=== PATIENT | male | born 1995 | race African-American/Black ===

== ENCOUNTER 2018-04-21 19:00 | Inpatient (IN) | payer OTHER ==
[~2018-04-21] VITALS: Ht 188 cm; Wt 71.3 kg
[2018-04-21] MEDS ORDERED: SODIUM CHLORIDE 0.9% 1,000ML IVBOLUS ONE ×2 (19:30→20:00)
[2018-04-21 19:33] LABS: BASOPHILS # (AUTO) 0.04 x10^3/uL (0-0.1); BASOPHILS % (AUTO) 1 % (0-1); EOSINOPHILS % (AUTO) 0 % (1-7); LYMPHOCYTES # (AUTO) 1.43 x10^3/uL (1-3.4); LYMPHOCYTES % (AUTO) 30 % (22-44); MD NO; MEAN CORPUSCULAR HEMOGLOBIN 23.5 pg (27.5-34.5); MEAN CORPUSCULAR HGB CONC 31.8 g/dL (33.2-36.2); MEAN CORPUSCULAR VOLUME 73.9 fL (81-97); MEAN PLATELET VOLUME 9.2 fL (7.4-10.4); MONOCYTES # (AUTO) 0.07 x10^3/uL (0.2-0.8); MONOCYTES % (AUTO) 2 % (2-9); NEUTROPHILS # (AUTO) 3.26 x10^3/uL (1.8-6.8); NEUTROPHILS % (AUTO) 68 % (42-75); PLATELET COUNT 242 x10^3/uL (130-400); RED BLOOD COUNT 6.43 x10^6/uL (4.38-5.82); RED CELL DISTRIBUTION WIDTH 13.7 % (9.4-14.8)
[2018-04-21 19:45] LABS: ACETONE, SERUM Large (80mg/dL) mg/dL (Negative)
[2018-04-21 19:48] LABS: ALANINE AMINOTRANSFERASE 33 U/L (12-78); ALBUMIN 4.4 g/dL (3.4-5.0); ANION GAP 21 mmol/L (5-15); CALCIUM 10.2 mg/dL (8.5-10.1); CHLORIDE 96 mmol/L (98-107)
[2018-04-21 19:50] LABS: ALKALINE PHOSPHATASE 84 U/L (45-117); TOTAL PROTEIN 9.2 g/dL (6.4-8.2)
[2018-04-21] MEDS ORDERED: REGULAR INSULIN 62.5 UNITS in SODIUM CHLORIDE 0.9% 249.375 ML IV PRN ×2 (19:58→21:39)
[2018-04-21] MEDS ORDERED: INSULIN REGULAR 100 UNITS/ML, 3ML VIAL IVPush ONE (20:00)
[2018-04-21] MEDS ORDERED: INSULIN (21:18)
[2018-04-21] MEDS ORDERED: D5%-0.45% NACL 1,000 ML IV PRN (21:39)
[2018-04-21] MEDS ORDERED: OXYcodone IR 5MG TABLET PO PRN (22:00)
[2018-04-21] MEDS ORDERED: ONDANSETRON 2MG/ML, 2ML IVPush PRN (22:00)
[2018-04-21] MEDS ORDERED: PROMETHAZINE 25 MG/ML, 1ML IM PRN (22:00)
[2018-04-21] MEDS ORDERED: hydrALAzine 20 MG/ML, 1ML IVPush PRN (22:00)
[2018-04-21] MEDS ORDERED: BISACODYL 10 MG SUPP PR PRN (22:00)
[2018-04-21] MEDS ORDERED: ONDANSETRON ODT 4 MG PO PRN (22:00)
[2018-04-21] MEDS ORDERED: POLYETHYLENE GLYCOL 17 GM PACKET PO PRN (22:00)
[2018-04-21] MEDS ORDERED: ACETAMINOPHEN 325 MG TABLET PO PRN (22:00)
[2018-04-21] MEDS ORDERED: morphine SULFATE 10 MG/ML, 1ML IVPush PRN (22:00)
[2018-04-21] MEDS ORDERED: DOCUSATE 100 MG CAPSULE PO PRN (22:00)
[2018-04-21 22:14] LABS: HEMOGLOBIN A1C 15.8 % (4.2-6.3)
[2018-04-21 22:16] LABS: FREE T4 (FREE THYROXINE) 0.99 ng/dL (0.76-1.46); THYROID STIMULATING HORMONE 0.348 mIU/L (0.358-3.740)
[2018-04-21] MEDS: HEPARIN 5,000 UNITS/ML, 1ML SQ SCH (23:11)
[2018-04-21] MEDS: SODIUM CHLORIDE 0.9% 1,000 ML IV SCH (23:11)
[2018-04-22 00:18] LABS: ANION GAP 15 mmol/L (5-15); CALCIUM 8.8 mg/dL (8.5-10.1); CHLORIDE 109 mmol/L (98-107); CREATININE 1.22 mg/dL (0.7-1.3)
[2018-04-22] MEDS: SODIUM CHLORIDE 0.9% 1,000 ML IV SCH (02:46)
[2018-04-22 03:39] LABS: MICROSCOPIC NOT IND
[2018-04-22 03:43] LABS: CULTURE INDICATED? NO
[2018-04-22 04:15] VITALS: BP 97/63
[2018-04-22 04:52] LABS: ANION GAP 8 mmol/L (5-15); CALCIUM 8.3 mg/dL (8.5-10.1); CHLORIDE 110 mmol/L (98-107)
[2018-04-22 04:56] LABS: CHOL/HDL RATIO 3.9; CHOLESTEROL, TOTAL 172 mg/dL (140-239); CREATININE 1.22 mg/dL (0.7-1.3); HDL CHOL % 26 % (26-37); HDL CHOLESTEROL (DIRECT) 44 mg/dL (40-60); LDL CHOLESTEROL,CALCULATED 118 mg/dL (54-169); LDL/HDL RATIO 2.7 (0.5-3.0); TRIGLYCERIDES 50 mg/dL (50-200); VLDL CHOLESTEROL 10 mg/dL (0-25)
[2018-04-22 05:15] LABS: BASOPHILS # (AUTO) 0.03 x10^3/uL (0-0.1); BASOPHILS % (AUTO) 1 % (0-1); EOSINOPHILS # (AUTO) 0.04 x10^3/uL (0-0.4); EOSINOPHILS % (AUTO) 1 % (1-7); LYMPHOCYTES # (AUTO) 2.08 x10^3/uL (1-3.4); LYMPHOCYTES % (AUTO) 47 % (22-44); MD NO; MEAN CORPUSCULAR HEMOGLOBIN 23.8 pg (27.5-34.5); MEAN CORPUSCULAR HGB CONC 32.4 g/dL (33.2-36.2); MEAN CORPUSCULAR VOLUME 73.4 fL (81-97); MEAN PLATELET VOLUME 9.4 fL (7.4-10.4); MONOCYTES # (AUTO) 0.16 x10^3/uL (0.2-0.8); MONOCYTES % (AUTO) 4 % (2-9); NEUTROPHILS # (AUTO) 2.14 x10^3/uL (1.8-6.8); NEUTROPHILS % (AUTO) 48 % (42-75); PLATELET COUNT 178 x10^3/uL (130-400); RED BLOOD COUNT 5.78 x10^6/uL (4.38-5.82); RED CELL DISTRIBUTION WIDTH 13.4 % (9.4-14.8)
[2018-04-22] MEDS: HEPARIN 5,000 UNITS/ML, 1ML SQ SCH (05:19)
[2018-04-22 08:57] LABS: ANION GAP 8 mmol/L (5-15); CALCIUM 9.1 mg/dL (8.5-10.1); CHLORIDE 112 mmol/L (98-107); CREATININE 1.06 mg/dL (0.7-1.3)
[2018-04-22] MEDS ORDERED: INSULIN GLARGINE 100 UNITS/ML, PEN ONE (09:26)
[2018-04-22] MEDS: INSULIN GLARGINE 100 UNITS/ML, PEN SQ-INSULIN SCH ×2 (09:33→15:49)
[2018-04-22] MEDS: INSULIN LISPRO 100 UNITS/ML, PEN SQ-INSULIN SCH ×3 (10:17→21:10)
[2018-04-22] MEDS ORDERED: MAGNESIUM SULFATE PMX 2GM/50ML 50 ML IV ONE (11:00)
[2018-04-22] MEDS: ENOXAPARIN 40 MG/0.4 ML SQ SCH (13:20)
[2018-04-22 18:28] VITALS: BP 105/67
[2018-04-23 00:23] VITALS: BP 110/74
[2018-04-23] MEDS: INSULIN LISPRO 100 UNITS/ML, PEN SQ-INSULIN SCH ×2 (03:29→08:56)
[2018-04-23 05:39] LABS: ANION GAP 8 mmol/L (5-15); CALCIUM 9.1 mg/dL (8.5-10.1); CHLORIDE 111 mmol/L (98-107); CREATININE 0.86 mg/dL (0.7-1.3)
[2018-04-23 07:29] VITALS: BP 115/75
[2018-04-23] MEDS: INSULIN GLARGINE 100 UNITS/ML, PEN SQ-INSULIN SCH (09:40)
[2018-04-23] MEDS ORDERED: INSU100V13 SC (12:20)
[2018-04-23] MEDS ORDERED: POTASSIUM CHLORIDE 20 MEQ TAB.ER.PRT PO ONE (12:30)
[2018-04-23] MEDS: ENOXAPARIN 40 MG/0.4 ML SQ SCH (13:07)
[2018-04-23 13:52] VITALS: BP 106/66
== END 2018-04-23 15:14 | disposition home or self-care (01) | DRG 637 ==
LOC: ED 21:01 → EDIP 21:24 → CCU 22:02 → 3NE 04-22 16:25 → DCLOUNGE 04-23 15:00
PROVIDERS: ADMIT Internal Medicine; ATTEND Internal Medicine
DX: E10.10 Type 1 diabetes mellitus with ketoacidosis without coma (principal); N17.0 Acute kidney failure with tubular necrosis; E87.1 Hypo-osmolality and hyponatremia; E10.649 Type 1 diabetes mellitus with hypoglycemia without coma; E86.0 Dehydration; Z79.4 Long term (current) use of insulin; Z83.3 Family history of diabetes mellitus; Z91.14 Patient's other noncompliance with medication regimen; Z91.19 Patient's noncompliance with other medical treatment and regimen
CPT/HCPCS: 36415; 80048; 80053; 80061; 81003; 82010; 82728; 82800; 82962; 83036; 83540; 83550; 83735; 84100; 84439; 84443; 84466; 85025; 87081; 96361; 96374; 96376; G0378; J1644; J1650; J1815; J3475; J7030; J7050